=== PATIENT | female | born 1980 | race Caucasian/White ===

== ENCOUNTER 2020-06-26 17:36 | Observation (INO) | payer OTHER ==
[2020-06-26 18:20] LABS: BASOPHILS # (AUTO) 0.1 10^3/uL (0.0-0.1); BASOPHILS % (AUTO) 1.4 %; EOSINOPHILS # (AUTO) 0.1 10^3/uL (0.0-0.7); EOSINOPHILS % (AUTO) 1.6 %; HCT - HEMATOCRIT 21.2 % (37.0-47.0); LYMPHOCYTES # (AUTO) 1.2 10^3/uL (1.5-3.5); LYMPHOCYTES % (AUTO) 27.5 %; MEAN CORPUSCULAR HEMOGLOBIN 17.1 pg (27.0-31.0); MEAN CORPUSCULAR HGB CONC 25.9 g/dL (32.0-36.0); MEAN CORPUSCULAR VOLUME 65.8 fL (81.0-99.0); MEAN PLATELET VOLUME 9.2 fL (7.9-10.8); MONOCYTES # (AUTO) 0.3 10^3/uL (0.0-1.0); MONOCYTES % (AUTO) 7.1 %; NEUTROPHILS # (AUTO) 2.6 10^3/uL (1.5-6.6); NEUTROPHILS % (AUTO) 62.2 %; PLT - PLATELET COUNT 326 10^3/uL (130-450); RED BLOOD COUNT 3.22 10^6/uL (4.20-5.40); RED CELL DISTRIBUTION WIDTH 18.6 % (12.0-15.0); WHITE BLOOD COUNT 4.3 x10^3/uL (4.8-10.8)
[2020-06-26 18:22] LABS: HGB - HEMOGLOBIN 5.5 g/dL (12.0-16.0); SLIDE REVIEW? Indicated
[2020-06-26 18:27] LABS: INR 1.2 (0.8-1.2); PT - PROTHROMBIN TIME 13.6 secs (9.9-12.6)
--- NOTE | 2020-06-26 18:28 | ED Physician Documentation ---
History of Present Illness - Stated complaint Stated Complaint: LIGHT HEADED/RACING HEART - Chief complaint Chief Complaint: General - Additonal information Additional information: 39-year-old female reports to the emergency department for evaluation of anemia. She reports that for the last few months she has been having increasing shortness of breath with activity and ambulation. She states that she has been told that she has iron deficiency in the past but is not compliant with iron supplementation. Past surgical history includes Yaw-en-Y procedure. She does endorse heavy menstrual cycles that last 5 to 6 days but she typically changes her pad or tampon every 4 hours. She has no history of previous blood transfusion. Screening labs completed today at the [facility] showed a hemoglobin of 5.3. Iron studies showed a TIBC of 457, iron of 7, Iron saturation of 2. Her TSH was 1.7. Review of Systems Constitutional: denies: Fever, Chills Eyes: reports: Reviewed and negative Ears: reports: Reviewed and negative Nose: reports: Reviewed and negative Throat: reports: Reviewed and negative Cardiac: reports: Palpitations, Other (light headed). denies: Chest pain / pressure, Pedal edema, Calf pain Respiratory: reports: Dyspnea. denies: Cough GI: denies: Abdominal Pain, Nausea, Vomiting, Constipation : reports: Reviewed and negative Skin: denies: Rash, Lesions Musculoskeletal: denies: Neck pain, Back pain Neurologic: denies: Near syncope, Syncope, Confused, LOC Psychiatric: reports: Reviewed and negative PD PAST MEDICAL HISTORY - Past Medical History Past Medical History: Yes Psych: Depression - Past Surgical History Past Surgical History: Yes - Present Medications Home Medications: Ambulatory Orders Medication Instructions Recorded Confirmed Sertraline [Zoloft] 25 mg PO DAILY 06/26/20 06/26/20 - Allergies Allergies/Adverse Reactions: Allergies Allergy/AdvReac Type Severity Reaction Status Date / Time tetracycline Allergy Anaphylaxis Verified 06/26/20 17:40 - Social History Does the pt smoke?: No Smoking Status: Never smoker Does the pt drink ETOH?: No Does the pt have substance abuse?: No - Immunizations Immunizations are current?: Yes - POLST Patient has POLST: No PD ED PE EXPANDED - General General: Alert, No acute distress, Well developed/nourished - Cardiac Cardiac: Tachy, Regular Rhythm, Radial strong equal, Cap refill < 2 sec, Prolonged cap refill. No: Murmur Present - Respiratory Respiratory: Clear to ausultation soumya. No: Distress, Labored - Abdomen Abdomen: Normal Bowel sounds. No: Tender to palpation - Derm Derm: Warm and dry, Pale. No: Rash, Petecchiae, Purpura - Extremities Extremities: Normal. No: Deformity, Tenderness - Neuro Neuro: Alert and Oriented X 3, CNII-XII intact, Normal speech - GCS Eye Opening: Spontaneous Motor: Obeys Commands Verbal: Oriented Total: 15 Results - Vitals Vitals: Vital Signs - 24 hr 06/26/20 17:40 Temperature 36.6 C Heart Rate 122 H Respiratory 16 Rate Blood Pressure 180/80 H O2 Saturation 100 Oxygen O2 Source Room air - EKG (time done) 1740 Rate: Rate (enter#) (125) Rhythm: Sinus tachycardia [place]: Normal Intervals: Normal AR. No: Prolonged QT QRS: Normal Ischemia: Normal ST segments Compare to prior EKG: Old EKG unavailable Computer interpretation: Agree with computer - Labs Labs: Laboratory Tests 06/26/20 18:06 WBC 4.3 L RBC 3.22 L Hgb 5.5 L* Hct 21.2 L MCV 65.8 L MCH 17.1 L MCHC 25.9 L RDW 18.6 H Plt Count 326 MPV 9.2 Manual Slide Review Indicated PD MEDICAL DECISION MAKING - ED course Complexity details: re-evaluated patient, d/w patient ED course: 39-year-old female presents to the emergency department for evaluation of symptomatic anemia. She does report a history of Yaw-en-Y procedure as well as iron deficiency anemia though not compliant with iron supplementation. She also endorses heavy menstrual cycles. Today screening labs at an outside clinic showed a hemoglobin of 5.3. Her hemoglobin here is 5.5. Outside labs also show fairly significant iron deficiency. Patient will be placed in observation status to complete the blood transfusion. I have initiated the order for the first 2 units and spoken with our hospitalist Dr. Roldan. Patient made aware of plans. Departure - Departure Disposition: ED Place in Observation Clinical Impression: Anemia Qualifiers: Anemia type: iron deficiency Iron deficiency anemia type: inadequate dietary iron intake Qualified Code(s): D50.8 - Other iron deficiency anemias
[2020-06-26 18:29] LABS: ALBUMIN 4.1 g/dL (3.2-5.5); ALBUMIN/GLOBULIN RATIO 1.2 (1.0-2.2); BILIRUBIN,TOTAL 0.3 mg/dL (0.2-1.0); CREATININE 0.6 mg/dL (0.4-1.0); POTASSIUM 3.5 mmol/L (3.5-5.0); TOTAL PROTEIN 7.4 g/dL (6.7-8.2)
[2020-06-26 18:34] LABS: PARTIAL THROMBOPLASTIN TIME 30.1 secs (24.9-33.3)
[2020-06-26 18:58] LABS: PLATELET ESTIMATE, MANUAL NORMAL (130-450,000) (NORMAL); PLATELET MORPHOLOGY NORMAL APPEARANCE (NORMAL)
[2020-06-26] MEDS ORDERED: SODIUM CHLORIDE FLUSH 0.9% 10 ML SYRINGE IVP PRN (19:13)
[2020-06-26] MEDS ORDERED: ONDANSETRON 4 MG/2 ML VIAL IVP PRN (19:16)
--- NOTE | 2020-06-26 19:18 | HISTORY & PHYSICAL EXAMINATION ---
Chief Complaint - Chief Complaint Chief Complaint: Fatigue History of Present Illness - Admitted From Admitted From:: Home - History Obtained From Records Reviewed: Yes History obtained from: Patient, Daytime hospitalist, EMR - History of Present Illness HPI Comment/Other: This is a very pleasant 39-year-old female with a past medical history signif icant for anxiety for which she takes Zoloft. She presents today after having labs done on outpatient basis which were concerning for anemia. She states she has been tired for the past few months. She initially attributed to just life in general given she has 6 children at home. She spoke with a friend who recommended obtaining labs and so she saw her primary care provider today who ordered labs on outpatient basis. She was found to be anemic with a hemoglobin in the 5's as well as iron deficient. Given these findings, she was referred to our emergency department. She states her most prominent symptom has been the fatigue. She states she has felt short of breath at times with exertion such as walking up a hill which she attributed to this being out of shape. She also noticed she has been a little more pale recently. Denies any blood in her stool or hematuria. She states she does have a regular menstrual cycle and it can be heavy at times. It normally lasts about 5 to 6 days. She will use a pad every 4 hours. She is currently menstruating. She does have a history of Yaw-en-Y bypass surgery and she was previously on iron supplementation but she has not been taking this consistently. She does report a prior history of iron urgency anemia associated with . No family history of colon cancer or inflammatory bowel disease. The emergency department, she is found to be afebrile. Her heart rate was initially in the 120s and this later improved to the 100s. Her blood pressure was 147/90. She was not tachypneic and saturating well on room air. Labs were significant for hemoglobin of 5.5 with MCV of 65.8. Her labs are otherwise unremarkable. Given her significant anemia, medicine was consulted to place the patient in observation for transfusion. 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 She denies any family history of colon cancer or inflamatory bowel disease. Living arrangement: At home Living Situation: With family Social History Notes: She lives at home with her and 6 children. 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 She is non-smoker. Will have an occasional alcoholic beverage. - POLST Patient has POLST: No Meds/Allgy - Home Medications Home Medications: Ambulatory Orders Medication Instructions Recorded Confirmed Sertraline [Zoloft] 25 mg PO DAILY 06/26/20 06/26/20 - Allergies Allergies/Adverse Reactions: Allergies Allergy/AdvReac Type Severity Reaction Status Date / Time tetracycline Allergy Anaphylaxis Verified 06/26/20 17:40 Review of Systems - Constitutional Constitutional: reports: Fatigue. denies: Fever, Chills - Ears, Nose & Throat Ears, Nose & Throat: reports: Nasal congestion. denies: Nasal discharge - Cardiovascular Cariovascular: reports: Lightheadedness, Exertional dyspnea, Decr. exercise tolerance. denies: Chest pain, Edema, Syncope - Respiratory Respiratory: reports: SOB with exertion. denies: Cough, SOB at rest - Gastrointestinal Gastrointestinal: denies: Abdominal pain, Constipation, Diarrhea, Change in bowel habits, Rectal bleeding, Nausea, Vomiting - Genitourinary Genitourinary: reports: Dysuria. denies: Frequency, Urgency, Hematuria - Neurological Neurological: denies: General weakness, Focal weakness - Hematologic/Lymphatic Hematologic/Lymphatic: reports: Anemia - All Other Systems All Other Systems: reports: Reviewed and negative Prior Level of Functionality: She is independent with her ADLs. Exam - Vital Signs Reviewed Vital Signs: Yes Vital Signs: Vital Signs x48h Temp Pulse Resp BP Pulse Ox 06/26/20 17:40 36.6 C 122 H 16 180/80 H 100 - Physical Exam General Appearance: positive: No acute distress, Alert Eyes Bilateral: positive: Normal inspection, Other (Conjunctival pallor) ENT: positive: ENT inspection nml Neck: positive: Nml inspection Respiratory: positive: No respiratory distress. negative: Wheezes, Rales Cardiovascular: positive: Regular rate & rhythm, No murmur. negative: Tachycardia, Systolic murmur Abdomen: positive: Non-tender, No distention. negative: Tenderness, Guarding, Rebound Skin: positive: Warm, Dry, Pallor Extremities: positive: Full ROM, No pedal edema Neurologic/Psychiatric: positive: Oriented x3, Motor nml. negative: Disoriented to person, Disoriented to place, Disoriented to time Conclusion/Plan - Problem List (1) Iron deficiency anemia Conclusion/Plan: This is likely secondary to her history of bypass surgery. Her iron studies are suggestive of iron deficiency and her MCV is quite decreased at 65. Her hemoglobin today is 5.5. We will transfuse 2 units of packed red blood cell and recheck her hemoglobin in the morning. We will also give her a dose of IV Venofer in the morning and start her on oral iron supplementation. She can likely be discharged tomorrow morning on oral iron supplementation and follow-up with her primary care provider. (2) Anxiety Conclusion/Plan: Continue home Zoloft. - Lab Results Lab results reviewed: Yes Fish Bones: 06/26/20 18:06 06/26/20 18:06 Core Measures - Issues Hospital Issues and Management Plan: 39-year-old female with history of gastric bypass found to have iron deficiency anemia with a hemoglobin of 5.5. Will be placed in observation for 2 units of packed red blood cell initiation of IV iron as well as oral iron supplementation. - DVT/VTE - Prophylaxis VTE/DVT Device ordered at admit?: No Not Ordered - Low Risk: Very low risk VTE/DVT Prophylaxis med ordered at admit?: No Not Ordered - Medical Reason: Not indicated
[2020-06-26 19:46] LABS: % IRON SATURATION 3 % (20-50); IRON 14 ug/dL (28-170); TOTAL IRON BINDING CAPACITY 559 ug/dL (250-450); TRANSFERRIN 399 mg/dL (192-382)
[2020-06-26 20:56] LABS: B. PARAPERTUSSIS- RESP PCR PAN NOT DETECTED; B. PERTUSSIS- RESP PCR PANEL NOT DETECTED; C. PNEUMONIAE- RESP PCR PANEL NOT DETECTED; CORONAVIRUS 229E-RESP PCR NOT DETECTED; CORONAVIRUS HKU1-RESP PCR NOT DETECTED; CORONAVIRUS NL63-RESP PCR NOT DETECTED; CORONAVIRUS OC43-RESP PCR NOT DETECTED; HUMAN METAPNEUMOVIRUS NOT DETECTED; INFLUENZA A- RESP PCR PANEL NOT DETECTED; INFLUENZA B - RESP PCR PANEL NOT DETECTED; M. PNEUMONIAE- RESP PCR PANEL NOT DETECTED; PARAINFLUENZA VIRUS 1 NOT DETECTED; PARAINFLUENZA VIRUS 2 NOT DETECTED; PARAINFLUENZA VIRUS 3 NOT DETECTED; PARAINFLUENZA VIRUS 4 NOT DETECTED; RHINOVIRUS/ENTEROVIRUS NOT DETECTED; RSV- RESP PCR PANEL NOT DETECTED; SARS-CoV-2 -RESP PCR PANEL NOT DETECTED
[2020-06-26] MEDS: ACETAMINOPHEN 325 MG TABLET PO PRN (21:06)
[2020-06-27] MEDS: SODIUM CHLORIDE FLUSH 0.9% 10 ML SYRINGE IVP SCH ×2 (01:35→08:53)
[2020-06-27] MEDS: ACETAMINOPHEN 325 MG TABLET PO PRN ×2 (01:38→11:30)
[2020-06-27 06:45] LABS: EOSINOPHILS # (AUTO) 0.1 10^3/uL (0.0-0.7); HCT - HEMATOCRIT 24.1 % (37.0-47.0); LYMPHOCYTES # (AUTO) 1.2 10^3/uL (1.5-3.5); LYMPHOCYTES % (AUTO) 29.9 %; MEAN CORPUSCULAR HEMOGLOBIN 19.4 pg (27.0-31.0); MEAN CORPUSCULAR HGB CONC 27.8 g/dL (32.0-36.0); MEAN CORPUSCULAR VOLUME 69.9 fL (81.0-99.0); MEAN PLATELET VOLUME 9.5 fL (7.9-10.8); MONOCYTES # (AUTO) 0.3 10^3/uL (0.0-1.0); MONOCYTES % (AUTO) 7.1 %; NEUTROPHILS # (AUTO) 2.3 10^3/uL (1.5-6.6); NEUTROPHILS % (AUTO) 58.7 %; PLT - PLATELET COUNT 272 10^3/uL (130-450); RED BLOOD COUNT 3.45 10^6/uL (4.20-5.40); RED CELL DISTRIBUTION WIDTH 22.2 % (12.0-15.0)
[2020-06-27 06:47] LABS: HGB - HEMOGLOBIN 6.7 g/dL (12.0-16.0); SLIDE REVIEW? Indicated
[2020-06-27 07:51] LABS: PLATELET ESTIMATE, MANUAL NORMAL (130-450,000) (NORMAL); PLATELET MORPHOLOGY NORMAL APPEARANCE (NORMAL); WBC MORPHOLOGY (MULTIPLE) NORMAL APPEARANCE (NORMAL)
[2020-06-27] MEDS ORDERED: IRON DEXTRAN 1,000 MG in SODIUM CHLORIDE 0.9% 250 ML IV ONE (08:00)
[2020-06-27] MEDS ORDERED: SERTRALINE 25 MG TABLET PO SCH (09:00)
--- NOTE | 2020-06-27 11:31 | Discharge Plan ---
Discharge Plan Problem Reviewed?: Yes Disposition: Home, Self Care Condition: Fair Prescriptions: Ferrous Gluconate 240 mg PO BID 30 Days #60 tablet Diet: Regular (Please eat foods high in Iron content.) Activity Restrictions: Activity as Tolerated Shower Restrictions: No Driving Restrictions: No Health Concerns: You were in Observation status to receive transfusion of 3 units of cross- matched blood and IV iron infusion. Please resume your oral iron replacement therapy and all your usual pre-hospital medications. A new prescription for ferrous gluconate was sent to your [facility] pharmacy in [place]. Plan of Treatment: As above. Care Goals: Improvement in symptoms and stabilization are the goals. Assessment: Patient understands and is agreeable with the plan. No Smoking: If you smoke, Please STOP! Call for help. Follow-up with: EZEQUIEL CLAUDIO DO [Primary Care Provider] -
--- NOTE | 2020-06-27 11:34 | DISCHARGE SUMMARY ---
Discharge Summary Admit Date: 06/26/20 Discharge Date: 06/27/20 Discharging Provider: Dr Daphne Murcia Primary Care Provider: Dr Steven Luna Condition at Discharge: Fair Discharge Disposition: 01 Home, Self Care - HPI History of Present Illness: From the admission H&P of Dr Yves Escalona: This is a very pleasant 39-year-old female with a past medical history significant for anxiety for which she takes Zoloft. She presents today after having labs done on outpatient basis which were concerning for anemia. She states she has been tired for the past few months. She initially attributed to just life in general given she has 6 children at home. She spoke with a friend who recommended obtaining labs and so she saw her primary care provider today who ordered labs on outpatient basis. She was found to be anemic with a hemoglobin in the 5's as well as iron deficient. Given these findings, she was referred to our emergency department. She states her most prominent symptom has been the fatigue. She states she has felt short of breath at times with exertion such as walking up a hill which she attributed to this being out of shape. She also noticed she has been a little more pale recently. Denies any blood in her stool or hematuria. She states she does have a regular menstrual cycle and it can be heavy at times. It normally lasts about 5 to 6 days. She will use a pad every 4 hours. She is currently menstruating. She does have a history of Yaw-en-Y bypass surgery and she was previously on iron supplementation but she has not been taking this consistently. She does report a prior history of iron urgency anemia associated with . No family history of colon cancer or inflammatory bowel disease. In the emergency department, she is found to be afebrile. Her heart rate was initially in the 120s and this later improved to the 100s. Her blood pressure was 147/90. She was not tachypneic and saturating well on room air. Labs were significant for hemoglobin of 5.5 with MCV of 65.8. Her labs are otherwise unremarkable. Given her significant anemia, the Hospitalist team was consulted to place the patient in Observation for transfusion. - HOSPITAL COURSE Hospital Course: (1) Iron deficiency anemia Her iron studies are suggestive of iron deficiency and her MCV is quite d ecreased at 65. She was symptomatic with fatigue and was tachycardic. She was transfused 2 units of packed red blood cell and a recheck her hemoglobin in the morning showed it jackson from 5.5 to 6.7. She also got a dose of IV Venofer in the morning, was started her on oral iron supplementation and received a 3rd unit of blood transfused. Another H/H was NOT checked after that. She was discharged with a new oral iron prescription and needs follow-up with her primary care provider. (2) Anxiety We continued her home dose of Zoloft. - ALLERGIES Allergies/Adverse Reactions: Allergies Allergy/AdvReac Type Severity Reaction Status Date / Time tetracycline Allergy Anaphylaxis Verified 06/26/20 17:40 - MEDICATIONS Home Medications: Ambulatory Orders Medication Instructions Recorded Confirmed Sertraline [Zoloft] 25 mg PO DAILY 06/26/20 06/26/20 Ferrous Gluconate 240 mg PO BID 30 Days #60 tablet 06/27/20 - PHYSICAL EXAM AT DISCHARGE General Appearance: positive: No acute distress, Alert Eyes Bilateral: positive: Normal inspection, EOMI ENT: positive: ENT inspection nml, No signs of dehydration Neck: positive: Nml inspection, No JVD Respiratory: positive: No respiratory distress Cardiovascular: positive: Regular rate & rhythm Abdomen: positive: Non-tender, No distention Skin: positive: Pallor Extremities: positive: Non-tender, No pedal edema - LABS Result Diagrams: 06/27/20 06:35 06/26/20 18:06 - DIAGNOSTIC IMAGING Diagnostic Imaging Results: Final report reviewed - FOLLOW UP Follow Up: See PCP in routine follow-up. - TIME SPENT Time Spent in Discharge (Minutes): 20
[2020-06-27 14:07] VITALS: BP 147/77
== END 2020-06-27 14:18 | disposition home or self-care (01) ==
LOC: ED 17:36 → MS2 19:13
PROVIDERS: ADMIT Internal Medicine; ATTEND Internal Medicine
DX: D50.8 Other iron deficiency anemias (principal); F41.9 Anxiety disorder, unspecified; Z98.84 Bariatric surgery status
CPT/HCPCS: 0202U; 36430; 80053; 82728; 83540; 84466; 85025; 85610; 85730; 86850; 86900; 86901; 86920; 96365; 99284; 99285; A9270; G0378; J1750; P9016

== ENCOUNTER 2021-09-22 08:38 | Outpatient (CLI) | payer OTHER ==
--- NOTE | 2021-09-22 09:48 | MRI Report ---
PROCEDURE: Lumbar Spine W/O INDICATIONS: LUMBAR RADICULOPATHY TECHNIQUE: Noncontrast sagittal T1 spin echo and T2 fast echo, sagittal STIR, axial T1 and T2 fast spin echo thr ough the lumbar spine. In cases with scoliosis, additional coronal T2 fast spin echo may be performe d. COMPARISON: None. FINDINGS: Image quality: Diagnostic Alignment and Curvature: There is minimal anterolisthesis seen at the L4-L5 level. Bone Marrow: Marrow is of normal overall signal. No acute vertebral body compression fractures. Spinal Cord: Conus medullaris terminates at the L1 level. Visualized cord demonstrates normal signa l and size. Paraspinous Soft Tissues: No paravertebral masses. T12-L1: The disc height and disc signal are relatively well-preserved. There is a central/right disc protrusion seen, as on series 2 image 8 and on series 5 image 4. Mild central canal narrowing is see n. There is minimal left-sided and [id number] right-sided neuroforaminal narrowing. L1-L2: The disc height and disc signal are relatively well-preserved. Mild disc bulge is seen. M ild to moderate bilateral neuroforaminal narrowing can be seen. Minimal central canal narrowing is se en. L2-L3: The disc height and disc signal are well preserved. Mild to moderate disc bulge is seen. A superimposed central disc protrusion is seen. Mild facet hypertrophy is seen. Moderate bilateral n eural foraminal narrowing is seen. At least moderate central canal narrowing is seen, as on series 5 image 19. L3-L4: The disc height and disc signal are well preserved. Moderate disc bulge is seen, which is ec centric to the left. Mild to moderate facet hypertrophy is seen. Moderate bilateral neuroforaminal na rrowing is present, left worse than right. Mild to moderate central canal narrowing is seen. L4-L5: Mild loss of disc height and disc signal are seen. Moderate disc bulge is seen, which is ecc entric to the right. There is a right foraminal/right lateral recess disc protrusion seen. Moderate t o prominent facet hypertrophy can be seen at this level. There is moderate to severe bilateral neurof oraminal narrowing, right worse than left. Compression is seen upon the exiting nerve roots. Modera te central canal narrowing is seen. L5-S1: The disc height and disc signal are well preserved. No significant disc bulge is seen. Mil d facet hypertrophy is seen. Moderate bilateral neural foraminal narrowing is seen. No significant central canal narrowing is seen. IMPRESSION: Multiple levels of lumbar spine degenerative change are seen, which are worst at the L4- L5 level. At this level, there is a right-sided disc protrusion, with moderate to severe bilateral ne uroforaminal narrowing, right worse than left. There is associated compression upon the exiting L4 ne rve roots. Reviewed by: Aaron Muñoz MD on 09/22/2021 8:47 AM [facility] Approved by: Aaron Muñoz MD on 09/22/2021 8:47 AM [facility] Station ID: [id number]
== END 2021-09-22 08:39 | disposition home or self-care (01) ==
LOC: DI 08:38
PROVIDERS: ATTEND Student in an Organized Health Care Education/Training Program
DX: M51.16 Intervertebral disc disorders with radiculopathy, lumbar region (principal); M48.061 Spinal stenosis, lumbar region without neurogenic claudication; M51.15 Intervertebral disc disorders with radiculopathy, thoracolumbar region; M48.05 Spinal stenosis, thoracolumbar region; M47.26 Other spondylosis with radiculopathy, lumbar region

== ENCOUNTER 2021-12-09 08:00 | Outpatient (CLI) | payer OTHER ==
--- NOTE | 2021-12-09 18:02 | XRAY Report ---
PROCEDURE: Ankle 3 View LT INDICATIONS: LEFT ANKLE PAIN TECHNIQUE: 4 views of the ankle were acquired. COMPARISON: None FINDINGS: Bones: Old injuries involving tip of medial and lateral malleoli are seen with well-corticated bony fragments. Osteophytic changes are seen involving tibiotalar joint. Osteoarthritic changes also seen in talonavicular joint. Well-defined plantar and dorsal calcaneal enthesophytes are seen No acute fra ctures or dislocations. Ankle mortise is normally aligned. No suspicious bony lesions. Soft tissues: Significant lateral ankle soft tissue swelling is seen. No tibiotalar joint effusion. Achilles tendon appears normal. IMPRESSION: Midfoot and hindfoot joint osteoarthritis as above. No acute fracture or dislocation. Si gnificant lateral ankle soft tissue swelling. Suggestion of old injury involving tip of medial and la teral malleoli. Reviewed by: Jose Carlos Farfan MD on 12/09/2021 6:01 PM PDT Approved by: Jose Carlos Farfan MD on 12/09/2021 6:01 PM PDT Station ID: [id number]
== END 2021-12-09 23:59 | disposition home or self-care (01) ==
LOC: DI.N 08:00
PROVIDERS: ATTEND Nurse Practitioner
DX: S93.402A Sprain of unspecified ligament of left ankle, initial encounter (principal); M19.072 Primary osteoarthritis, left ankle and foot

== ENCOUNTER 2023-05-03 11:51 | Outpatient (CLI) | payer OTHER ==
--- NOTE | 2023-05-04 15:58 | Mammography Report ---
BILATERAL DIGITAL SCREENING MAMMOGRAM 3D/2D: 05/03/2023 CLINICAL: Baseline exam. Routine screening. No prior exams were available for comparison. There are scattered areas of fibroglandular density in both breasts (category b / 25%-50% glandular t issue). No significant masses, calcifications, or other findings are seen in either breast. IMPRESSION: NEGATIVE There is no mammographic evidence of malignancy. A 1 year screening mammogram is recommended. Based on the Tyrer Cuzick model (a risk assessment model) the patient's lifetime risk is 9.7% and her 10 year risk is 1.4%. According to the ACR, ACS, and NCCN guidelines, an annual breast MRI exam crispin g with mammogram is recommended if the patients lifetime risk is 20% or greater. This exam was interpreted at Station ID: [id number]. NOTE: For mammograms, a report in lay terms will be sent to the patient. Approximately 15% of breast malignancies will not be visualized mammographically. In the management of a palpable breast mass, a negative mammogram must not discourage biopsy of a clinically suspicious lesion. Electronically Signed By: Иван arizmendi/villa:05/03/2023 18:11:53 letter sent: No_Letter ACR BI-RADS Category 1: Negative 3341F PARENCHYMAL PATTERN: (A) - The breast(s) demonstrate(s) scattered fibroglandular densities. BI-RADS CATEGORY: (1) - 1 Mammogram [id number] 1 year screening LATERALITY: (B)
== END 2023-05-03 11:52 | disposition home or self-care (01) ==
LOC: DI.N 11:51
PROVIDERS: ATTEND Physician Assistant Medical
DX: Z12.31 Encounter for screening mammogram for malignant neoplasm of breast (principal); R92.323 Mammographic fibroglandular density, bilateral breasts